=== PATIENT | male | born 1965 | race Caucasian/White ===

== ENCOUNTER → 2017-10-08 | Outpatient (CLI) | payer OTHER ==
[~2017-10-08] MED LIST: ALLO300T PO; ASPI-496 PO; ATOR10TA9 PO; OMEP20TA62 PO
[2017-10-08 10:17] LABS: BASOPHILS # (AUTO) 0.04 x10^3/uL (0-0.1); BASOPHILS % (AUTO) 1 % (0-1); EOSINOPHILS # (AUTO) 0.19 x10^3/uL (0-0.4); EOSINOPHILS % (AUTO) 4 % (1-7); LYMPHOCYTES # (AUTO) 2.01 x10^3/uL (1-3.4); LYMPHOCYTES % (AUTO) 37 % (22-44); MD NO; MEAN CORPUSCULAR HEMOGLOBIN 32.6 pg (27.5-34.5); MEAN CORPUSCULAR HGB CONC 34.1 g/dL (33.2-36.2); MEAN CORPUSCULAR VOLUME 95.6 fL (81-97); MEAN PLATELET VOLUME 8.5 fL (7.4-10.4); MONOCYTES # (AUTO) 0.34 x10^3/uL (0.2-0.8); MONOCYTES % (AUTO) 6 % (2-9); NEUTROPHILS # (AUTO) 2.93 x10^3/uL (1.8-6.8); NEUTROPHILS % (AUTO) 53 % (42-75); PLATELET COUNT 313 x10^3/uL (130-400); RED BLOOD COUNT 4.97 x10^6/uL (4.38-5.82); RED CELL DISTRIBUTION WIDTH 13.5 % (9.4-14.8)
[2017-10-08 10:26] LABS: ALBUMIN 3.9 g/dL (3.4-5.0); ANION GAP 4 mmol/L (5-15); CHLORIDE 107 mmol/L (98-107)
[2017-10-08 10:30] LABS: ALANINE AMINOTRANSFERASE 51 U/L (12-78); ALKALINE PHOSPHATASE 131 U/L (45-117); CREATININE 0.78 mg/dL (0.7-1.3); TOTAL PROTEIN 7.3 g/dL (6.4-8.2)
== END | disposition home or self-care (01) ==
LOC: STAR 09:20
PROVIDERS: ATTEND Colon & Rectal Surgery
DX: Z01.818 Encounter for other preprocedural examination (principal); R00.1 Bradycardia, unspecified
CPT/HCPCS: 36415; 80053; 85025; 93005

== ENCOUNTER 2017-10-16 06:08 | Inpatient (IN) | payer OTHER ==
[2017-10-08 09:46] VITALS: BP 122/69
[~2017-10-16] VITALS: Ht 172.7 cm; Wt 89.4 kg
[2017-10-16] MEDS ORDERED: LACTATED RINGERS 1,000 ML IV SCH (06:35)
[2017-10-16] MEDS ORDERED: BUPIVACAINE/PF 0.5% ONE (06:46)
[2017-10-16] MEDS ORDERED: INDOCYANINE GREEN 25 MG VIAL ONE (06:46)
[2017-10-16] MEDS ORDERED: EPINEPHRINE 1 MG/ML, 1ML ONE (06:46)
[2017-10-16] MEDS ORDERED: ROCURONIUM 10MG/ML,5ML ONE (06:57)
[2017-10-16] MEDS ORDERED: CEFOTETAN PMX 2GM/50ML 50 ML ONE (06:57)
[2017-10-16] MEDS ORDERED: PROPOFOL 10 MG/ML, 20ML ONE (06:57)
[2017-10-16] MEDS ORDERED: SCOPOLAMINE PATCH, 1.5MG PATCH.TD72 TD ONE (07:00)
[2017-10-16] MEDS ORDERED: GABAPENTIN 300 MG CAPSULE PO ONE (07:00)
[2017-10-16] MEDS ORDERED: OXYcodone IR 5MG TABLET PO ONE (07:00)
[2017-10-16] MEDS ORDERED: ACETAMINOPHEN 500 MG TABLET PO ONE (07:00)
[2017-10-16] MEDS ORDERED: MIDAZOLAM 1 MG/ML, 2ML ONE (07:01)
[2017-10-16] MEDS ORDERED: FENTANYL PF 250 MCG/5ML ONE (07:02)
[2017-10-16] MEDS ORDERED: BUPIVACAINE/PF 0.25% ONE ×2 (07:02)
[2017-10-16] MEDS ORDERED: DEXAMETHASONE 4 MG/ML, 5ML ONE (07:28)
[2017-10-16] MEDS ORDERED: ONDANSETRON 2MG/ML, 2ML ONE (07:28)
[2017-10-16] MEDS ORDERED: hydrALAzine 20 MG/ML, 1ML IV PRN (07:30)
[2017-10-16] MEDS ORDERED: LABETALOL 5MG/ML, 20ML IV PRN (07:30)
[2017-10-16] MEDS ORDERED: FENTANYL PF 100 MCG/2ML IV PRN (07:30)
[2017-10-16] MEDS ORDERED: HALOPERIDOL 5 MG/ML IV PRN (07:30)
[2017-10-16] MEDS ORDERED: EPHEDRINE 50 MG/ML, 1ML IVPush PRN (07:30)
[2017-10-16] MEDS ORDERED: DIAZEPAM 5 MG/ML, 2ML IVPush PRN (07:30)
[2017-10-16] MEDS ORDERED: PROMETHAZINE 25 MG/ML, 1ML IV PRN (07:30)
[2017-10-16] MEDS ORDERED: OXYcodone 5 MG/5 ML ORAL.SOL UDC PO PRN (07:30)
[2017-10-16] MEDS ORDERED: HYDROmorphone 1 MG/ML, 1ML IV PRN (07:30)
[2017-10-16] MEDS ORDERED: MEPERIDINE/PF 25MG/0.5ML IVPush PRN (07:30)
[2017-10-16] MEDS ORDERED: METOPROLOL 1 MG/ML, 5ML IV PRN (07:30)
[2017-10-16] MEDS ORDERED: ALBUTEROL SULFATE 2.5 MG/3 ML NPPB PRN (07:30)
[2017-10-16] MEDS ORDERED: BUPIVACAINE/PF-EPI 0.5% 1:200K INFIL ONE (08:05)
[2017-10-16] MEDS ORDERED: GLYCOPYRROLATE 0.4 MG/2 ML, 2ML ONE (09:31)
[2017-10-16] MEDS ORDERED: NEOSTIGMINE 1 MG/ML, 10ML ONE (09:31)
[2017-10-16 11:13] VITALS: BP 140/93
[2017-10-16] MEDS ORDERED: CALCIUM CARBONATE 500 MG TAB.CHEW PO PRN (11:30)
[2017-10-16] MEDS ORDERED: TRAZODONE 50MG TABLET PO PRN (11:30)
[2017-10-16] MEDS: LACTATED RINGERS 1,000 ML IV SCH ×2 (11:30→23:14)
[2017-10-16] MEDS ORDERED: DIPHENHYDRAMINE 25 MG CAPSULE PO PRN (11:30)
[2017-10-16] MEDS ORDERED: MORPHINE SULFATE 4 MG/ML, 1ML IVPush PRN (11:30)
[2017-10-16] MEDS ORDERED: DEXAMETHASONE 4 MG/ML, 1ML IVPush PRN (11:30)
[2017-10-16] MEDS ORDERED: ONDANSETRON 2MG/ML, 2ML IV PRN (11:30)
[2017-10-16] MEDS: ACETAMINOPHEN 325 MG TABLET PO SCH ×3 (12:12→23:45)
[2017-10-16] MEDS: KETOROLAC 30 MG/1 ML IVPush SCH ×3 (12:13→23:45)
[2017-10-16] MEDS: OXYcodone IR 5MG TABLET PO PRN ×2 (12:13→20:14)
[2017-10-16 14:29] VITALS: BP 123/80
[2017-10-16 20:00] VITALS: BP 106/65
[2017-10-16] MEDS: ALLOPURINOL 300 MG TABLET PO SCH (20:13)
[2017-10-16] MEDS: ATORVASTATIN 10 MG TABLET PO SCH (20:14)
[2017-10-16] MEDS: OMEPRAZOLE 20 MG CAPSULE.DR PO SCH (20:14)
[2017-10-17 01:35] VITALS: BP 99/61
[2017-10-17 04:47] VITALS: BP 108/65
[2017-10-17] MEDS: ASPIRIN 81 MG TABLET EC PO SCH (05:32)
[2017-10-17] MEDS: ACETAMINOPHEN 325 MG TABLET PO SCH ×4 (05:32→23:37)
[2017-10-17] MEDS: KETOROLAC 30 MG/1 ML IVPush SCH ×4 (05:32→23:37)
[2017-10-17 06:10] LABS: BASOPHILS # (AUTO) 0.04 x10^3/uL (0-0.1); BASOPHILS % (AUTO) 0 % (0-1); EOSINOPHILS # (AUTO) 0.01 x10^3/uL (0-0.4); EOSINOPHILS % (AUTO) 0 % (1-7); LYMPHOCYTES # (AUTO) 1.32 x10^3/uL (1-3.4); LYMPHOCYTES % (AUTO) 13 % (22-44); MD NO; MEAN CORPUSCULAR HEMOGLOBIN 32.5 pg (27.5-34.5); MEAN CORPUSCULAR HGB CONC 33.7 g/dL (33.2-36.2); MEAN CORPUSCULAR VOLUME 96.3 fL (81-97); MEAN PLATELET VOLUME 8.9 fL (7.4-10.4); MONOCYTES # (AUTO) 0.57 x10^3/uL (0.2-0.8); MONOCYTES % (AUTO) 6 % (2-9); NEUTROPHILS # (AUTO) 8.01 x10^3/uL (1.8-6.8); NEUTROPHILS % (AUTO) 81 % (42-75); PLATELET COUNT 267 x10^3/uL (130-400); RED BLOOD COUNT 4.33 x10^6/uL (4.38-5.82); RED CELL DISTRIBUTION WIDTH 13.4 % (9.4-14.8)
[2017-10-17 06:16] LABS: ANION GAP 8 mmol/L (5-15); CALCIUM 8.3 mg/dL (8.5-10.1); CHLORIDE 100 mmol/L (98-107); CREATININE 0.82 mg/dL (0.7-1.3)
[2017-10-17 08:41] VITALS: BP 101/66
[2017-10-17] MEDS: ENOXAPARIN 40 MG/0.4 ML SQ SCH (08:50)
[2017-10-17 14:28] VITALS: BP 99/55
[2017-10-17] MEDS: ATORVASTATIN 10 MG TABLET PO SCH (20:00)
[2017-10-17] MEDS: ALLOPURINOL 300 MG TABLET PO SCH (20:00)
[2017-10-17] MEDS: OMEPRAZOLE 20 MG CAPSULE.DR PO SCH (20:00)
[2017-10-17] MEDS: OXYcodone IR 5MG TABLET PO PRN (20:00)
[2017-10-17 20:22] VITALS: BP 104/70
[2017-10-18 03:10] VITALS: BP 107/64
[2017-10-18] MEDS: LACTATED RINGERS 1,000 ML IV SCH (03:30)
[2017-10-18 04:51] LABS: ANION GAP 7 mmol/L (5-15); CHLORIDE 102 mmol/L (98-107)
[2017-10-18 05:09] LABS: BASOPHILS # (AUTO) 0.04 x10^3/uL (0-0.1); BASOPHILS % (AUTO) 1 % (0-1); EOSINOPHILS # (AUTO) 0.13 x10^3/uL (0-0.4); EOSINOPHILS % (AUTO) 2 % (1-7); LYMPHOCYTES # (AUTO) 2.28 x10^3/uL (1-3.4); LYMPHOCYTES % (AUTO) 34 % (22-44); MD NO; MEAN CORPUSCULAR HEMOGLOBIN 32.5 pg (27.5-34.5); MEAN CORPUSCULAR VOLUME 95.3 fL (81-97); MEAN PLATELET VOLUME 8.8 fL (7.4-10.4); MONOCYTES # (AUTO) 0.49 x10^3/uL (0.2-0.8); MONOCYTES % (AUTO) 7 % (2-9); NEUTROPHILS # (AUTO) 3.68 x10^3/uL (1.8-6.8); NEUTROPHILS % (AUTO) 56 % (42-75); PLATELET COUNT 225 x10^3/uL (130-400); RED BLOOD COUNT 4.03 x10^6/uL (4.38-5.82); RED CELL DISTRIBUTION WIDTH 13.1 % (9.4-14.8)
[2017-10-18] MEDS: ACETAMINOPHEN 325 MG TABLET PO SCH (05:28)
[2017-10-18] MEDS: KETOROLAC 30 MG/1 ML IVPush SCH (05:28)
[2017-10-18] MEDS: ASPIRIN 81 MG TABLET EC PO SCH (05:28)
[2017-10-18] MEDS ORDERED: OXYC1TAB7 PO (06:41)
[2017-10-18] MEDS ORDERED: POLY17PO5 PO (06:42)
[2017-10-18 07:47] VITALS: BP 111/65
[2017-10-18] MEDS: ENOXAPARIN 40 MG/0.4 ML SQ SCH (09:44)
[2017-10-18] MEDS: OXYcodone IR 5MG TABLET PO PRN (09:46)
[2017-10-18 11:15] VITALS: BP 119/72
== END 2017-10-18 11:20 | disposition home or self-care (01) | DRG 334 ==
LOC: ORIP 06:08 → 4NOR 11:00
PROVIDERS: ADMIT Colon & Rectal Surgery; ATTEND Colon & Rectal Surgery
PROC: 8E0W4CZ Robotic Assisted Procedure of Trunk Region, Percutaneous Endoscopic Approach (ICD-10-PCS; 2017-10-16)
PROC: 0DTP4ZZ Resection of Rectum, Percutaneous Endoscopic Approach (ICD-10-PCS; principal; 2017-10-16 07:30)
DX: K57.32 Diverticulitis of large intestine without perforation or abscess without bleeding (principal); E78.00 Pure hypercholesterolemia, unspecified; K21.9 Gastro-esophageal reflux disease without esophagitis; K59.00 Constipation, unspecified; F17.200 Nicotine dependence, unspecified, uncomplicated; M10.9 Gout, unspecified; Z82.3 Family history of stroke; Z72.89 Other problems related to lifestyle
CPT/HCPCS: 36415; 80048; 82040; 83735; 85025; 86850; 86900; 88307; J0171; J1100; J1650; J1885; J2250; J2405; J2704; J2710; J3010; J3490; C1765; J7120; S0074